=== PATIENT | female | born 1955 | race Caucasian/White ===

== ENCOUNTER → 2017-02-12 | Outpatient (CLI) | payer BC | LOC: FIMAGING 08:45 | PROVIDERS: ATTEND Family Medicine Sports Medicine | DX: M25.559 Pain in unspecified hip (principal) ==

== ENCOUNTER 2017-02-27 17:38 | Emergency (ER) | payer BC ==
[2017-02-27 17:47] VITALS: RESP 16
[2017-02-27] MEDS ORDERED: predniSONE 20 MG TAB PO ONE (17:56)
--- NOTE | 2017-02-27 17:58 | EDPHY ---
H & P Time Seen by Provider: 02/27/17 17:48 HPI/ROS: CHIEF COMPLAINT: Right foot insect sting HISTORY OF PRESENT ILLNESS: But 1 hour ago patient was stung by wasp or some type of biting insect on her right 4th toe. She presents because 3 years ago she had a similar event on her right calf and swelled up and her leg began blistering and she had follow-up with an operations lieutenant. Today she has itching redness and swelling on the distal half of her forefoot. She does not have any other skin rash, no trouble breathing or swallowing, no tongue lip swelling or throat tightness, no abdominal cramping or vomiting. She has a little bit of nausea. She took 2 Claritin 2 Advil. REVIEW OF SYSTEMS: Eye: no change in vision ENT: no sore throat Cardiac: no chest pain or syncope Pulmonary: no cough or SOB Abdomen: no vomiting, diarrhea, abdominal pain Musculoskeletal: no back pain Skin: no rash Neuro: no headache Constitutional: no fever : no urinary symptoms A comprehensive 10 point review of systems is otherwise negative aside from elements mentioned in the history of present illness. PAST MEDICAL HISTORY: Negative Social history: PCP is Dr. Farmer, nonsmoker. General Appearance: Alert and conversant, cooperative. Eyes: No scleral icterus. ENT, Mouth: Normal mucous membranes. No angioedema, normal uvula. Respiratory: Normal respiratory effort, breath sounds equal, lungs are clear to auscultation. No wheezing. Cardiovascular: Regular rate and rhythm. Gastrointestinal: Abdomen is soft and non tender. Neurological: Alert and oriented x3. Normally conversant. Face symmetric, normal movement and sensation in all extremities. Skin: Redness and warmth in the distal forefoot on the right with a punctum over the IP joint of the 4th toe. No crepitus, no blisters, no eschar, no lymphangitis. Musculoskeletal: Right foot peripheral edema otherwise normal. Psychiatric: Not agitated. Emergency Department course/MDM: Patient already took antihistamines. Plan for oral prednisone and observation in the emergency department. Short course of oral steroids discussed and consented. 190: Re-evaluated, clinically stable, no systemic signs of anaphylaxis. Smoking Status: Never smoked Constitutional: Initial Vital Signs Temperature (C) 36.5 C 02/27/17 17:44 Heart Rate 65 02/27/17 17:44 Respiratory Rate 16 02/27/17 17:44 Blood Pressure 137/89 H 02/27/17 17:44 O2 Sat (%) 96 02/27/17 17:44 O2 Delivery Mode Room Air Allergies/Adverse Reactions: lidocaine Allergy (Verified 02/27/17 17:47) Home Medications: Medication Instructions Recorded Jennyemunir 02/27/17 predniSONE 10 mg PO AD #15 tab 02/27/17 Medical Decision Making - Data Points Medications Given: Discontinued Medications Prednisone (Prednisone) 60 mg PO EDNOW ONE Stop: 02/27/17 17:57 Last Admin: 02/27/17 18:02 Dose: 60 mg Departure - Departure Disposition: Home, Routine, Self-Care Clinical Impression: Insect bite (nonvenomous), right foot, initial encounter Condition: Good Instructions: Insect Bite or Sting (ED) Referrals: Caren Mane MD [Primary Care Provider] - As per Instructions Prescriptions: predniSONE 10 mg PO AD #15 tab
[2017-02-27 19:16] VITALS: BP 132/90; PULSE 59; TEMP 98.2; O2SAT 93
== END 2017-02-27 19:16 | disposition home or self-care (01) ==
DX: S90.861A Insect bite (nonvenomous), right foot, initial encounter (principal); W57.XXXA Bitten or stung by nonvenomous insect and other nonvenomous arthropods, initial encounter; Y99.8 Other external cause status; Y93.89 Activity, other specified

== ENCOUNTER → 2017-07-02 | Outpatient (CLI) | payer BC | LOC: FIMAGING 14:14 | PROVIDERS: ATTEND Family Medicine | DX: Z12.31 Encounter for screening mammogram for malignant neoplasm of breast (principal); Z13.820 Encounter for screening for osteoporosis; M85.89 Other specified disorders of bone density and structure, multiple sites; M25.552 Pain in left hip; L40.9 Psoriasis, unspecified; Z79.899 Other long term (current) drug therapy | CPT/HCPCS: G0202 ==

== ENCOUNTER → 2018-11-10 | Outpatient (CLI) | payer BC | LOC: FIMAGING 13:45 | PROVIDERS: ATTEND Family Medicine | DX: M81.0 Age-related osteoporosis without current pathological fracture (principal); E03.9 Hypothyroidism, unspecified; G47.9 Sleep disorder, unspecified; Z78.0 Asymptomatic menopausal state ==